=== PATIENT | male | born 1980 | race African-American/Black ===

== ENCOUNTER 2021-06-03 19:19 | Emergency (ER) | payer BC ==
[2021-06-03] MEDS ORDERED: Apixaban 5 MG Tab PO ONE (21:29)
--- NOTE | 2021-06-03 21:35 | EDM.PDOC ---
ED HPI GENERAL MEDICAL PROBLEM - General Chief Complaint: Lower Extremity Injury/Pain Stated Complaint: PAIN IN RT LEG Time Seen by Provider: 06/03/21 20:37 - History of Present Illness INITIAL COMMENTS - FREE TEXT/NARRATIVE: CHIEF COMPLAINT(S): Leg swelling HISTORY OF PRESENT ILLNESS: This is a 40-year-old man with a past medical history of tobacco use disorder who comes to the emergency department with a chief complaint of leg swelling. The patient states that for the last 2 weeks he has been experiencing swelling of his right leg. He states that it started out in his foot but he started to experience calf pain which he currently is not experiencing. He noticed that his right leg was more swollen the left and he went to an urgent care in [place]. They stated that they did not know if he had a blood clot and recommended he come here to get an ultrasound to evaluate for DVT. He denies any recent travel, recent surgery, prior history of DVT or PE. He denies any clotting disorders. He denies any family history of clotting. He states the swelling has significantly improved over the last couple of days however he still concerned that there might be a clot. He denies any current pain. He denies any fevers or chills. He denies any injury to the leg. REVIEW OF SYSTEMS: Constitutional: Denies fever, chills. Eyes: Denies eye pain Ears, Nose, Mouth, & Throat: Denies earache Cardiovascular: Denies chest pain Respiratory: Denies shortness of breath Gastrointestinal: Denies Nausea, vomiting, diarrhea, hematochezia. Genitourinary: Denies hematuria Skin:Denies a rash MSK: Positive for right lower extremity swelling Neurological: Denies blurred vision, numbness, tingling, weakness Psychiatric: Denies depression PAST MEDICAL HISTORY: As per history of present illness and as reviewed below ot herwise noncontributory. SURGICAL HISTORY: As per history of present illness and as reviewed below otherwise noncontributory. SOCIAL HISTORY: As per history of present illness and as reviewed below otherwise noncontributory. FAMILY HISTORY: As per history of present illness and as reviewed below otherwise noncontributory. EXAMINATION OF ORGAN SYSTEMS/BODY AREAS: Constitutional: Blood pressure is 143/99, heart rate 78, respiratory rate 18 with an oxygen saturation 98% on room air. Temperature 36.6 General: Well-appearing man who is in no acute distress Psychiatric: Appropriate mood and affect. Eyes: No scleral icterus or conjunctival erythema ENMT: Moist mucous membranes. No pharyngeal erythema Cardiovascular: Regular, rate, and rhythm. No gallops, murmurs, or rubs. Bilateral upper extremity pulses and lower extremity pulses symmetric and intact. Right lower extremity pitting edema 2+ as compared to the left which does not have any pitting edema. No JVD. Respiratory: Lungs clear to auscultation bilaterally. No wheezes, rales, or rhonchi. Gastrointestinal: Soft, non-tender, non-distended. Normoactive bowel sounds Genitourinary: No suprapubic tenderness Musculoskeletal: Normal range of motion. No deformity. Skin: No lesions or abrasions. Neurological: Alert, GCS 15 distal sensation is intact MEDICAL DECISION MAKING AND COURSE IN THE ED WITH INTERPRETATION/REVIEW OF DIAGNOSTIC STUDIES: This is a 40-year-old man and without any significant past medical history other than tobacco use disorder who comes to the emergency department with acute asymmetric lower extremity pitting edema. At this time I am concerned about the possibility of DVT however given that the patient does not have a contraindication to anticoagulation ultrasound is not available at this time to obtain a duplex ultrasonography. Therefore I did discuss with patient that I could perform a bedside ultrasonography to evaluate if there is any DVT visualized by myself. He was amenable to this plan. Bedside venous DVT scan Right popliteal vein has evidence of a noncompressible vein indicating a DVT. This clot extends up to the mid thigh. It does not include the proximal femoral vein at the bifurcation. At this time I did discuss patient had like to start him on Eliquis. He is to take 10 mg twice a day for the next week and then 5 mg twice a day for the duration. I discussed that he did need a formal duplex ultrasonography and that he needs to follow-up with his primary care physician for further monitoring. He was given strict return precautions. He was amenable discharge and had no further questions. He was given an outpatient prescription for a DVT scan. I stressed the importance of this follow-up and he stated and expressed understanding DISPOSITION: The patient was discharged home in stable condition. The patient will follow up with primary care physician in 3 to 5 days for reevaluation and report back to Wendy Tobar for formal ultrasound CONDITION: Fair PROCEDURES: Bedside DVT ultrasound FINAL IMPRESSION(S)/DIAGNOSES: Acute right lower extremity DVT Andrew Tovar M.D. Bilateral Leg Pain Score (Numeric/FACES): 0 - Related Data Allergies Allergy/AdvReac Type Severity Reaction Status Date / Time No Known Allergies Allergy Verified 06/03/21 19:57 Home Meds: Home Meds Apixaban [Eliquis] 5 mg PO BID #42 tablet 06/03/21 [Rx] Apixaban [Eliquis] 10 mg PO BID #28 tablet 06/03/21 [Rx] Past Medical History - Past Health History Medical/Surgical History: Denies Medical/Surgical History - Infectious Disease History Infectious Disease History: Reports: None Social & Family History - Family History Family Medical History: No Pertinent Family History - Tobacco Use Tobacco Use Status *Q: Current Every Day Tobacco User Years of Tobacco use: 12 Packs/Tins Daily: 1 - Caffeine Use Caffeine Use: Reports: Coffee, Soda - Recreational Drug Use Recreational Drug Use: No Review of Systems - Review of Systems Review Of Systems: See Below ED EXAM, GENERAL - Physical Exam Exam: See Below Course - Vital Signs Last Recorded V/S: Last Vital Signs Temp 36.6 C 06/03/21 20:00 Pulse 76 06/03/21 21:57 Resp 18 06/03/21 21:57 BP 139/97 H 06/03/21 21:57 Pulse Ox 97 06/03/21 21:57 - Orders/Labs/Meds Meds: Medications Discontinued Medications Generic Name Dose Route Start Last Admin Trade Name Freq PRN Reason Stop Dose Admin Apixaban 10 mg 06/03/21 21:29 06/03/21 21:49 Apixaban 5 Mg Tab PO 06/03/21 21:30 10 mg ONETIME ONE Administration Departure - Departure Time of Disposition: 21:31 Disposition: Home, Self-Care 01 Condition: Fair Clinical Impression: DVT (deep venous thrombosis) - Discharge Information *PRESCRIPTION DRUG MONITORING PROGRAM REVIEWED*: No *COPY OF PRESCRIPTION DRUG MONITORING REPORT IN PATIENT LINH: No Prescriptions: Apixaban [Eliquis] 10 mg PO BID #28 tablet Apixaban [Eliquis] 5 mg PO BID #42 tablet Instructions: Deep Vein Thrombosis Referrals: PCP,None [Primary Care Provider] - Forms: ED Department Discharge Additional Instructions: Your evaluated today on an emergent basis. At this time as discussed we do not have emergent ultrasound for DVT given that you do not have any contraindication to blood thinning. I did perform a bedside ultrasound and there is evidence of a clot in your right leg. I did start you on Eliquis here in the emergency department. It is extremely important that you follow-up for a formal ultrasound for which we did provide you a paperwork with you to schedule this ultrasound. Please take Eliquis 10 mg twice a day for the next 7 days and then after that do 5 mg twice a day. Given that you have this clot in your leg it is extremely important that you follow-up with a primary care physician either in [place] or here in [place]. There are 2 numbers below for primary care physician I recommend you make an appointment as soon as possible. If you have any chest pain, shortness of breath feel like you are going to pass out I would like you to return to the emergency department. [facility] [address] [place] [address] [place] [address] The patient is informed of any results of their evaluation and diagnostic workup and all questions are answered. They are given discharge instructions and return precautions. The patient is stable for discharge. The patient states they understand and agree with the plan and that they will return if their symptoms get worse or if they have any new concerns. The following information is given to patients seen in the emergency department who are being discharged to home. This information is to outline your options for follow-up care. We provide all patients seen in our emergency department with a follow-up referral. The need for follow-up, as well as the timing and circumstances, are variable depending upon the specifics of your emergency department visit. If you don't have a primary care physician on staff, we will provide you with a referral. We always advise you to contact your personal physician following an emergency department visit to inform them of the circumstance of the visit and for follow-up with them and/or the need for any referrals to a consulting specialist. The emergency department will also refer you to a specialist when appropriate. This referral assures that you have the opportunity for follow-up care with a specialist. All of these measure are taken in an effort to provide you with optimal care, which includes your follow-up. Under all circumstances we always encourage you to contact your private physician who remains a resource for coordinating your care. When calling for follow-up care, please make the office aware that this follow-up is from your recent emergency room visit. If for any reason you are refused follow-up, please contact the [facility] Emergency Department at and asked to speak to the emergency department charge nurse. Sepsis Event Note (ED) - Evaluation Sepsis Screening Result: No Definite Risk
== END 2021-06-03 21:57 | disposition home or self-care (01) ==
LOC: MW.ED 19:19
DX: I82.401 Acute embolism and thrombosis of unspecified deep veins of right lower extremity (principal); Z72.0 Tobacco use; Z79.01 Long term (current) use of anticoagulants
CPT/HCPCS: 99283; A9270